=== PATIENT | female | born 1965 | race Caucasian/White ===

== ENCOUNTER 2019-11-08 09:10 | Observation (INO) ==
--- NOTE | 2019-10-25 14:34 | PAT Medication Instructions ---
Medication Instructions Date of Service October 25, 2019 Home Medications Medication Instructions Recorded norethindrone acetate [Aygestin] 5 mg PO BID 20 Days #40 tab 10/24/19 PNV cmb#95-ferrous fumarate-FA [] 1 tab PO QDL cholecalciferol (vitamin D3) [Vitamin D3] 125 mcg PO QAM ferrous sulfate [iron] 650 mg PO QAM norethindrone acetate [Aygestin] 5 mg PO BID ASK your surgeon for instructions norethindrone acetate [Aygestin] 5 mg PO BID DO NOT take the morning of surgery PNV cmb#95-ferrous fumarate-FA [] 1 tab PO QDL cholecalciferol (vitamin D3) [Vitamin D3] 125 mcg PO QAM ferrous sulfate [iron] 650 mg PO QAM Other Notes If you have any questions please call us at [phone] or [phone] or [phone] or [phone]
--- NOTE | 2019-10-28 10:44 | Anesthesiology Consultation ---
Date of Service October 28, 2019 Assessment & Plan (1) Encounter for pre-operative examination: Per PAT assessment on 10/27: Travel screen negative. No known COVID-19 positive contacts. No current COVID-19 related symptoms. Patient scheduled for preop protocol COVID-19 testing at [facility]. Awaiting results. - Check test AM DOS Chart Review Chart Review: Acceptable Risk for Surgery (pending COVID testing) and Patient seen in Pre Admission Testing Teaching & Discussion Pre-Anesthesia Teaching/Discussion Notes: Instructed NPO after midnight before surgery,except medications with 15 cc of water. Medication instructions provided according to the PAT guidelines. History Surgery Operation Date: 11/08/19 11:10 Proposed Procedures p Exam Under Anesthesia, Total Laparoscopic Hysterectomy, Bilateral Salpingectomy, Cystoscopy - Keon Freeman MD Height/Weight Height: 5 ft 7 in Weight: 91.1 kg Allergies Allergy/AdvReac Type Severity Reaction Status Date / Time codeine AdvReac Intermediate Nausea Unverified 10/25/19 09:19 Medications Home Medications Medication Instructions Recorded Confirmed Last Taken PNV cmb#95-ferrous fumarate-FA 1 tab PO QDL 10/24/19 10/25/19 10/23/19 [] cholecalciferol (vitamin D3) 125 mcg PO QAM 10/24/19 10/25/19 10/23/19 [Vitamin D3] ferrous sulfate [iron] 650 mg PO QAM 10/24/19 10/25/19 10/23/19 norethindrone acetate [Aygestin] 5 mg PO BID 20 Days #40 tab 10/24/19 10/25/19 Unknown Past Medical History Medical History (Updated 10/28/19 @ 11:12 by Ariella Gandhi) Abnormal uterine bleeding (AUB) (Acute) Anemia hx of iron infusions, no hx of blood tranfusions Exercise / Class Metabolic Activity II 4-5 Yardwork/Stairs/Walk up hill Past Family History Family History Other No family history of adverse response to anesthesia Past Surgical History Surgical History H/O wisdom tooth extraction History of dilatation and curettage with uterine ablation Past Anesthesia History No Hx of Anesthesia Complications (except PONV) and No Family Hx of Anesthesia Complications History of PONV No Hx of Motion Sickness and History of PONV (x2 episodes, no issues with more recent surgery when pre-treatment used) Social History Smoking Status: Never smoker Do You Dip or Chew Tobacco: No Hx Alcohol Use: Yes Alcohol type: hard liquor alcohol intake frequency: 0-2 drinks per day (1-2 drinks daily (vodka/seltzer)) Hx Substance Use: No substance use type: does not use Review of Systems Patient denies chest pain, shortness of breath, dyspnea on exertion, fever, chills, cough, wheezing, palpitations. Physical Exam Vital Signs VITALS BP 136/83 P 94 TEMP 98.5 SP02 96%RA RESP 16 PHYSICAL Full neck and c-spine range of motion. Full TMJ range of motion. TMD 3.5 finger breaths Mallampati Score 1 Dentition: missing molars, crowns on sides Lungs: clear throughout to auscultation Cardiac: regular rate and rhythm, no murmurs noted Spine: normal Carotid arteries: negative bruit Extremities: no edema Testing Laboratory Results Blood Type A Positive 10/28/19 11:40 Antibody Screen NEGATIVE 10/28/19 11:40 10/24/19 WBC 6.63 H/H 11.3/34.0 PLATELETS 201 SODIUM 142 POTASSIUM 4.1 CHLORIDE 108 CO2 26 BUN 11 CREATININE 0.69 GLUCOSE 86 PT 10.3 PTT 24.4 INR 1.0 UA negative Electrocardiogram Date: 10/24/19 Findings: + NSR @ (90)
[~2019-11-08 09:10] MED LIST: CLINDAMYCIN 600 MG/54 ML BAG IV SCH; DEXTROSE 5% IV SCH; GENTAMICIN SULFATE IV SCH; LACTATED RINGER'S 1,000 ML IV SCH; LR 15ML/HR IV SCH
[2019-11-08] MEDS ORDERED: fentaNYL citrate 100 MCG/2 ML VIAL ONE (09:38)
[2019-11-08] MEDS ORDERED: MIDAZOLAM HCL 1 MG/ML 2ML VIAL ONE (09:38)
[2019-11-08] MEDS ORDERED: ROCURONIUM BROMIDE 10 MG/ML 5 ML VIAL IV ONE ×2 (09:39→12:48)
[2019-11-08] MEDS ORDERED: ONDANSETRON INJ 2 MG/ML 2 ML VIAL ONE (09:39)
[2019-11-08] MEDS ORDERED: LIDOCAINE HCL 2% 2 ML VIAL/AMP(20MG/ML) INFIL ONE (09:39)
[2019-11-08] MEDS ORDERED: DEXAMETHASONE SOD INJ 4 MG/ML VIAL ONE (09:40)
[2019-11-08] MEDS ORDERED: PROPOFOL IV EMULSION 10 MG/ML 20 ML VIAL IV ONE (09:40)
[2019-11-08] MEDS ORDERED: SCOPOLAMINE 1.5 MG TDSY TD ONE ×2 (09:54→09:57)
[2019-11-08] MEDS ORDERED: ONDANSETRON INJ 2 MG/ML 2 ML VIAL IV PRN ×2 (09:58→14:13)
[2019-11-08] MEDS ORDERED: ATROPINE SULFATE 0.1 MG/ML 10ML SYR IV PRN (09:58)
[2019-11-08] MEDS ORDERED: fentaNYL citrate 100 MCG/2 ML VIAL IV PRN (09:58)
[2019-11-08] MEDS ORDERED: ePHEDrine sulfate 50 MG/ML AMP IV PRN (09:58)
--- NOTE | 2019-11-08 10:30 | History & Physical Bridge Note ---
Date of Service November 08, 2019 History & Physical Bridge Note I have examined the patient, reviewed the History & Physical and in the interval since the performance of the History & Physical I have noted the following changes of clinical significance: no changes noted Patient decided to have her ovaries removed. Understands the risks of surgical menopause, hot flashes , mood swings, futures risk of osteoporosis, CAD, Stroke We updated the consent with "bilateral salpingoophorectomy" and signed with todays date and time All questions were answered
[2019-11-08] MEDS ORDERED: MINERAL OIL LIGHT 10 ML BTL ONE (10:33)
[2019-11-08] MEDS ORDERED: BUPIVACAINE 0.5 % 5 MG/1 ML MPF 30ML VIAL ONE (10:33)
[2019-11-08] MEDS ORDERED: METHYLENE BLUE 0.5% 10 ML VIAL ONE (10:34)
[2019-11-08 10:35] LABS: Basophils # (auto) 0.03 K/uL (0-0.2); Basophils % (auto) 0.7 %; Eosinophils # (auto) 0.08 K/uL (0-0.5); Eosinophils % (auto) 1.8 %; Hematocrit (blood only) 31.9 % (37-47); Hemoglobin 9.9 g/dL (12.0-16.0); Lymphocytes # (auto) 1.26 K/uL (1.2-3.4); Lymphocytes % (auto) 27.6 %; Mean Corpuscular Hemoglobin 30.1 pg (25-34); Mean Platelet Volume 9.8 fL (7.4-10.4); Neutrophils # (auto) 2.69 K/uL (1.4-6.5); Neutrophils % (auto) 58.9 %; Platelet Count 215 K/uL (130-400); RDW Coefficient of Variation 15.8 % (11.5-14.5); RDW Standard Deviation 56.3 fL (36.4-46.3); Red Blood Count 3.29 M/uL (4.2-5.4); White Blood Count 4.56 K/uL (4.8-10.8)
[2019-11-08] MEDS ORDERED: HYDROmorphone INJ 2 MG/ML SYR/VIAL ONE (11:29)
[2019-11-08] MEDS ORDERED: SODIUM CHLORIDE 0.9% 250 ML IV PRN (11:50)
[2019-11-08] MEDS ORDERED: NEOSTIGMINE METHYLSULFATE 5 MG/5 ML SYR ONE (12:02)
[2019-11-08] MEDS ORDERED: GLYCOPYRROLATE 0.2 MG/ML VIAL ONE (12:02)
[2019-11-08] MEDS ORDERED: MEPERIDINE HCL 25 MG/ML CARP/VIAL IV PRN (14:13)
[2019-11-08] MEDS ORDERED: PROMETHAZINE HCL 12.5 MG in SODIUM CHLORIDE 0.9% 50 ML IV PRN (14:13)
[2019-11-08] MEDS ORDERED: MEPERIDINE HCL 50 MG/ML CARP IV PRN (14:13)
[2019-11-08] MEDS ORDERED: MAGNESIUM HYDROXIDE SUSP 30 ML UDC PO PRN (14:13)
[2019-11-08] MEDS ORDERED: ACETAMINOPHEN 325 MG TAB PO PRN (14:13)
[2019-11-08] MEDS ORDERED: IBUPROFEN 600 MG TAB PO PRN (14:13)
[2019-11-08] MEDS ORDERED: bisacodyL 10 MG SUPP PR PRN (14:13)
[2019-11-08] MEDS ORDERED: PROMETHAZINE HCL 25 MG in SODIUM CHLORIDE 0.9% 50 ML IV PRN (14:13)
[2019-11-08] MEDS ORDERED: KETOROLAC 30 MG/ML VIAL IV PRN (14:13)
[2019-11-08] MEDS ORDERED: OXYCODONE/ACETAMINOPHEN 5mg/325mg TAB PO PRN (14:13)
[2019-11-08] MEDS ORDERED: SIMETHICONE 80 MG CHEW PO PRN (14:13)
--- NOTE | 2019-11-08 14:13 | Post Operative Brief Note ---
Immediate Post Op Note v1 Date of Surgery November 08, 2019 Pre & Post Diagnosis Operation Date: 11/08/19 10:50 Pre-Op Diagnosis: Heavy Periods, Abdnormal Uterine Bleeding Post-Op Diagnosis: Heavy Periods, Abdnormal Uterine Bleeding I identified the patient and participated in the time-out.: Yes Procedure Operation Date: 11/08/19 10:50 Actual Procedures p Exam Under Anesthesia, Total Laparoscopic Hysterectomy, Lysis of adhesion, Bilateral Salpingo-oopherectomy, and Cystoscopy(Not Applicable) - Keon Trujillo MD Surgeon Keon Freeman MD Truck Driver Salesperson Dr Choudhary, Dr Borges Estimated Blood Loss 75 Findings Consistent with Post-Op Diagnosis Drains Schwartz Catheter Anesthesia Type General Complications none Disposition Accompanied Patient To Recovery: Yes Disposition: PCU
--- NOTE | 2019-11-08 14:56 | Anesthesiology Progress Note ---
Date of Service November 08, 2019 Anesthesia Post Procedure Vital Signs Vital Signs: Temp Pulse Pulse Resp BP BP Pulse Ox 11/08/19 14:45 90 15 159/85 H 100 11/08/19 14:35 87 12 163/84 H 100 11/08/19 14:27 98.4 F 91 H 11 L 163/97 H 100 11/08/19 10:01 99.5 F 81 18 141/86 H 98 Transfer of Care Handoff Completed per policy Notes Mental Status: alert / awake / arousable and participated in evaluation Patient Amnestic to Procedure: Yes Nausea / Vomiting: adequately controlled Pain: adequately controlled Airway Patency, RR, SpO2: stable & adequate BP & HR: stable & adequate Hydration State: stable & adequate Anesthetic Complications: no major complications apparent and Pt Satisfied with anesthetic care
[2019-11-08] MEDS: OXYCODONE/ACETAMINOPHEN 5mg/325mg TAB PO PRN ×2 (16:18→21:56)
[2019-11-08] MEDS: LACTATED RINGER'S 1,000 ML IV SCH (16:19)
[2019-11-08] MEDS: CHECK SCOPOLAMINE PATCH PLACEMENT SCH ×2 (16:19→23:58)
--- NOTE | 2019-11-08 17:33 | Operative Report (OR) ---
DATE OF OPERATION: 11/08/2019 PREOPERATIVE DIAGNOSES: The patient is a 54-year-old 1, para 1-0-0-1 female with history of heavy periods, abnormal prolonged uterine bleeding, fibroid uterus, history of endometrial ablation and desires definitive surgery, hysterectomy. POSTOPERATIVE DIAGNOSES: The patient is a 54-year-old 1, para 1-0-0-1 female with history of heavy periods, abnormal prolonged uterine bleeding, fibroid uterus, history of endometrial ablation and desires definitive surgery, hysterectomy. PROCEDURE: Exam under anesthesia, total laparoscopic hysterectomy, lysis of adhesion, bilateral salpingo-oophorectomy and cystoscopy. SURGEON: Keon Freeman MD. ASSISTANTS: Dr. Choudhary and Dr. Borges. ESTIMATED BLOOD LOSS: 75 mL. DRAINS: Schwartz catheter drained 450 mL of urine. ANESTHESIA: General endotracheal. COMPLICATIONS: None. FINDINGS: Exam under anesthesia revealed anteverted 14-week size uterus, nonpalpable adnexa. INTRAOPERATIVE FINDINGS: Uterus was enlarged about 14-week size with multiple fibroids. Normal fallopian tubes and ovaries. There was adhesion between the bladder serosa onto the anterior and left cornua of uterine wall, and there was adhesion between the bowel serosa and the left fallopian tube and ovary. DESCRIPTION OF PROCEDURE: The patient was taken to the operating room where general anesthesia was given without difficulty. She was then placed in dorsal lithotomy position, prepared and draped in usual sterile fashion. Bladder was drained with a Schwartz catheter. Exam under anesthesia was done with above findings and a speculum was placed in the patient's vagina. Cervix was visualized, grasped with a single tooth tenaculum and uterus was sounded to be 11 cm and then VCare manipulator was placed into the uterine cavity. Its balloon was inflated and the green cap was attached to the cervix with a suture and then it was placed over the cervix circumferentially and its blue cap was locked against the green cap to provide manipulation during surgery. Gloves were changed. Attention was turned to the patient's abdomen where a periumbilical skin incision was made about 12 mm and then the fat tissue was dissected off with Leeanne clamp. Fascia was grasped with Tenisha clamp and entered with the Veress needle and then normal saline test was done, injected the normal saline, which was moving freely and then suctioned back to clear fluid, and then CO2 gas was attached to the Veress needle. Pneumoperitoneum was obtained with CO2 gas and the abdomen was distended. Veress needle was removed and the 11 mm OptiScope was placed under direct visualization. Intra-abdominal entrance was confirmed with the scope. The patient was placed in dorsal Trendelenburg position. Uterus was brought to the midline, which was seen to be enlarged irregularly with multiple fibroids and there was adhesion of the serosa of the bladder on the anterior and left uterine wall, and then there were some adhesions between the bowel serosa and left adnexa. Then, 2 more trocars were placed on the left lower abdomen, one was 11 mm, the other one was 5 mm. One more trocar was placed on the right lower quadrant of abdomen, it was 5 mm and those were placed under direct visualization with the scope. The uterus was injected with diluted vasopressin to help to decrease blood loss during surgery and then the adhesion on the left cornua of the uterus between the parietal peritoneum and the bladder serosa was held and then incised gently with the LigaSure device. It was a thin adhesion, it did peel off easily. The left ovary and tube was also adhered to the left pelvic sidewall and the bowel serosa. To avoid those adhesions, the uterine cornua was incised with the left broad ligament and the uteroovarian ligament and then broad ligament and then bladder flap was made, and it was cut and incised with LigaSure device, and attention was turned to the right adnexa, which was normal. The fallopian tube was grasped with a grasper and the right infundibulopelvic ligament was identified, grasped with LigaSure device, coagulated 3 times and cut, then this was carried through the broad ligament and incised with the LigaSure device and bladder flap was connected from the left side to the right side and the bladder flap was pushed down over the lower uterus and cervix. Attention was turned to the uterine arteries. Those were coagulated multiple times and then cut on both sides. Excellent hemostasis was achieved. Then, cardinal ligaments were also coagulated and cut with LigaSure device. At that point, we were able to feel the edge of the cup from the vagina. Vagina mucosa was dissected off from filmy adhesions and then it was incised with the tip of LigaSure circumferentially. The whole uterus with the cervix and right ovary and fallopian tube were detached from the vagina, and attention was turned to the patient's vagina where the cervix was grasped. Uterus was brought to the vagina. It was very large to be delivered from vagina. It was incised with a scalpel to help to deliver and then removed completely and sent to the pathology, and then left ovary and the left fallopian tube were gently excised from the left adnexa, paying attention to not to touch bowels and those were removed from the vagina and sent to the pathology. Gloves were changed and attention was turned to the patient's abdomen again and the pelvis was irrigated with warm normal saline and suctioned. Excellent hemostasis was achieved. Then, the vaginal cuff was repaired with EndoStitch with absorbable suture starting from left corner towards the right corner in a continuous manner and then Lapra-Tys were placed for laparoscopic ties and it was hemostatic. The pelvis was irrigated with warm normal saline and suctioned and checked to be hemostatic again. Attention was turned to the patient's bladder. Cystoscopy was done and normal bladder mucosa was seen. Ureteral openings were seen and they were both ejecting urine, and cystoscopy was ended, bladder was emptied. Gloves were changed and Then the 11 mm incision on the left lower quadrant was repaired with laparoscopic sutures device under direct visualization with scope. Gas was emptied, the trocars were removed. The fascia at the periumbilical incision was repaired with 0 Vicryl with [id number] sutures. Skin incisions were closed with 4-0 Monocryl in a subcuticular fashion. The patient tolerated the procedure well. Sponge, lap, needle count was correct x3. The patient tolerated the procedure well. She was taken out from lithotomy position, cleaned, dried and brought to recovery room in stable condition. No complications happened. I and Dr. Choudhary and Dr. Borges were present during whole procedure as an assistant operations manager. She received 2 grams of cefazolin before surgery. My assistants were needed for uterine manipulation, retraction for tissue exposure and handling of laparoscope and laparoscopic instruments to ensure adequate visualization, gentle tissue manipulation and hemostasis. I attest to the content of the Intraoperative Record and any orders documented therein. Any exceptions are noted below. MAURICE
--- NOTE | 2019-11-08 18:37 | Obstetrical Progress Note ---
Date of Service November 08, 2019 Assessment & Plan Admission and Anticipated Discharge Date Admission Date: November 08, 2019 Subjective Postop check Patient is seen and examined Feels well, no complaints other than Migraine headache since surgery She normally drink coffee in the morning , might be caffeine withdrawal HARO as well No numbness/ tingling/ change in vision Incision or her abdomen does not bother her. No CP/ SOB/ Dizziness/ N&V/ VB/ Leg pain Not OOB yet Tolerating clears Explained about the surgery and findings Vital Signs Temp Pulse Pulse Resp BP BP Pulse Ox 11/08/19 17:55 37.1 C 93 H 16 139/81 97 11/08/19 16:58 36.6 C 88 16 161/85 H 97 11/08/19 16:31 36.7 C 83 16 152/81 H 97 11/08/19 15:05 75 14 147/85 H 95 11/08/19 14:55 36.8 C 87 15 163/92 H 97 11/08/19 14:45 90 15 159/85 H 100 11/08/19 14:35 87 12 163/84 H 100 11/08/19 14:27 36.9 C 91 H 11 L 163/97 H 100 11/08/19 10:01 37.5 C 81 18 141/86 H 98 PE: General: Alert, orientedx3, NAD Neurologic exam grossly normal CVS: S1S2 RRR Lungs: CTAB Abd: soft, NT, ND, BS+, Incisions/ Dressings C/D/I No VB Ext: NT, no edema, SCD's on AP: 54 yo female s/p EUA, TLH, BSO, SANTO, Cystoscopy , pod#0 VSS Afebrile doing well Migraine and caffeine withdrawal HARO, neurologic exam normal, await oral meds action, coffee as she desires Continue to routine postop care Encourage PO intake, may be OOB or ambulate D/C rosario in am Results & Data ([facility]) Vital Signs (Past 12 Hours) Vital Signs Temp Pulse Pulse Resp BP BP Pulse Ox 11/08/19 17:55 37.1 C 93 H 16 139/81 97 11/08/19 16:58 36.6 C 88 16 161/85 H 97 11/08/19 16:31 36.7 C 83 16 152/81 H 97 11/08/19 15:05 75 14 147/85 H 95 11/08/19 14:55 36.8 C 87 15 163/92 H 97 11/08/19 14:45 90 15 159/85 H 100 11/08/19 14:35 87 12 163/84 H 100 11/08/19 14:27 36.9 C 91 H 11 L 163/97 H 100 11/08/19 10:01 37.5 C 81 18 141/86 H 98
[2019-11-08 18:49] LABS: Hematocrit (blood only) 32.3 % (37-47); Hemoglobin 10.2 g/dL (12.0-16.0)
[2019-11-08] MEDS: DOCUSATE SODIUM 100 MG CAP PO SCH (20:41)
[2019-11-09] MEDS: LACTATED RINGER'S 1,000 ML IV SCH ×2 (00:23→08:34)
[2019-11-09 06:02] LABS: Basophils # (auto) 0.02 K/uL (0-0.2); Basophils % (auto) 0.2 %; Eosinophils # (auto) 0.02 K/uL (0-0.5); Eosinophils % (auto) 0.2 %; Hematocrit (blood only) 29.5 % (37-47); Hemoglobin 9.2 g/dL (12.0-16.0); Immature Granulocytes # (auto) 0.01 K/uL (0.00-0.02); Immature Granulocytes % (auto) 0.1 %; Lymphocytes # (auto) 1.52 K/uL (1.2-3.4); Lymphocytes % (auto) 17.7 %; Mean Corpuscular Hgb Conc 31.2 g/dL (32-36); Mean Corpuscular Volume 96.1 fL (80-100); Mean Platelet Volume 10.5 fL (7.4-10.4); Monocytes # (auto) 1.37 K/uL (0.11-0.59); Monocytes % (auto) 15.9 %; Neutrophils # (auto) 5.66 K/uL (1.4-6.5); Neutrophils % (auto) 65.9 %; Platelet Count 254 K/uL (130-400); RDW Coefficient of Variation 16.4 % (11.5-14.5); RDW Standard Deviation 57.3 fL (36.4-46.3); Red Blood Count 3.07 M/uL (4.2-5.4)
[2019-11-09 06:28] LABS: BUN Creatinine Ratio 9.5 (10-20); Creatinine Clr Calc Pharmacy 113.1 ml/min; Est GFR (African American) 116.6; Est GFR (Non-African American) 100.6; Potassium 3.6 mmol/L (3.5-5.1)
[2019-11-09 07:23] VITALS: BP 125/71; TEMP 99; O2SAT 98
[2019-11-09] MEDS: CHECK SCOPOLAMINE PATCH PLACEMENT SCH (08:34)
[2019-11-09] MEDS: DOCUSATE SODIUM 100 MG CAP PO SCH (08:34)
--- NOTE | 2019-11-09 09:52 | Obstetrical Progress Note ---
Date of Service November 09, 2019 Assessment & Plan Admission and Anticipated Discharge Date Admission Date: November 08, 2019 Subjective Patient is seen and examined. She feels well, no complaints. Much better than yesterday Pain is under control with oral meds. Ambulating without dizziness Has not Voided yet Tolerating regular diet with out N&V Flatus neg BM neg Bleeding is minimal No fever/ chills/ CP/ SOB/ N&V/ Leg pain Vital Signs Temp Pulse Pulse Resp BP Pulse Ox 11/09/19 07:22 37.2 C 68 18 125/71 98 11/09/19 03:30 36.7 C 63 14 118/69 96 11/09/19 00:12 37.0 C 76 14 126/73 97 11/09/19 11/09/19 11/08/19 Range/Units 05:45 05:45 18:39 WBC 8.60 (4.8-10.8) K/uL RBC 3.07 L (4.2-5.4) M/uL Hgb 9.2 L 10.2 L (12.0-16.0) g/dL Hct 29.5 L 32.3 L (37-47) % MCV 96.1 (80-100) fL MCH 30.0 (25-34) pg MCHC 31.2 L (32-36) g/dL RDW Std Deviation 57.3 H (36.4-46.3) fL RDW Coeff of Abigail 16.4 H (11.5-14.5) % Plt Count 254 (130-400) K/uL MPV 10.5 H (7.4-10.4) fL Immature Gran % (Auto) 0.1 % Neut % (Auto) 65.9 % Lymph % (Auto) 17.7 % [place] % (Auto) 15.9 % Eos % (Auto) 0.2 % Baso % (Auto) 0.2 % Neut # (Auto) 5.66 (1.4-6.5) K/uL Lymph # (Auto) 1.52 (1.2-3.4) K/uL [place] # (Auto) 1.37 H (0.11-0.59) K/uL Eos # (Auto) 0.02 (0-0.5) K/uL Baso # (Auto) 0.02 (0-0.2) K/uL Immature Gran # (Auto) 0.01 (0.00-0.02) K/uL Sodium 142 (136-145) mmol/L Potassium 3.6 (3.5-5.1) mmol/L Chloride 111 H (98-107) mmol/L Carbon Dioxide 26 (21-32) mmol/L Anion Gap 5.0 (3-11) BUN 6 L (7-18) mg/dl Creatinine 0.68 (0.6-1.2) mg/dl Est Cr Clr Drug Dosing 113.1 ml/min Est GFR ( Amer) 116.6 Est GFR (Non-Af Amer) 100.6 BUN/Creatinine Ratio 9.5 L (10-20) Glucose 113 H (70-99) mg/dl Calcium 8.0 L (8.5-10.1) mg/dl POC Ur Test (NEG) Blood Type Antibody Screen Crossmatch 11/08/19 11/08/19 11/08/19 Range/Units 10:24 10:24 09:54 WBC 4.56 L (4.8-10.8) K/uL RBC 3.29 L (4.2-5.4) M/uL Hgb 9.9 L (12.0-16.0) g/dL Hct 31.9 L (37-47) % MCV 97.0 (80-100) fL MCH 30.1 (25-34) pg MCHC 31.0 L (32-36) g/dL RDW Std Deviation 56.3 H (36.4-46.3) fL RDW Coeff of Abigail 15.8 H (11.5-14.5) % Plt Count 215 (130-400) K/uL MPV 9.8 (7.4-10.4) fL Immature Gran % (Auto) 0.0 % Neut % (Auto) 58.9 % Lymph % (Auto) 27.6 % [place] % (Auto) 11.0 % Eos % (Auto) 1.8 % Baso % (Auto) 0.7 % Neut # (Auto) 2.69 (1.4-6.5) K/uL Lymph # (Auto) 1.26 (1.2-3.4) K/uL [place] # (Auto) 0.50 (0.11-0.59) K/uL Eos # (Auto) 0.08 (0-0.5) K/uL Baso # (Auto) 0.03 (0-0.2) K/uL Immature Gran # (Auto) 0.00 (0.00-0.02) K/uL Sodium (136-145) mmol/L Potassium (3.5-5.1) mmol/L Chloride (98-107) mmol/L Carbon Dioxide (21-32) mmol/L Anion Gap (3-11) BUN (7-18) mg/dl Creatinine (0.6-1.2) mg/dl Est Cr Clr Drug Dosing ml/min Est GFR ( Amer) Est GFR (Non-Af Amer) BUN/Creatinine Ratio (10-20) Glucose (70-99) mg/dl Calcium (8.5-10.1) mg/dl POC Ur Test NEG (NEG) Blood Type Cancelled Antibody Screen Cancelled Crossmatch See Detail 11/08/19 Range/Units 09:38 WBC (4.8-10.8) K/uL RBC (4.2-5.4) M/uL Hgb (12.0-16.0) g/dL Hct (37-47) % MCV (80-100) fL MCH (25-34) pg MCHC (32-36) g/dL RDW Std Deviation (36.4-46.3) fL RDW Coeff of Abigail (11.5-14.5) % Plt Count (130-400) K/uL MPV (7.4-10.4) fL Immature Gran % (Auto) % Neut % (Auto) % Lymph % (Auto) % [place] % (Auto) % Eos % (Auto) % Baso % (Auto) % Neut # (Auto) (1.4-6.5) K/uL Lymph # (Auto) (1.2-3.4) K/uL [place] # (Auto) (0.11-0.59) K/uL Eos # (Auto) (0-0.5) K/uL Baso # (Auto) (0-0.2) K/uL Immature Gran # (Auto) (0.00-0.02) K/uL Sodium (136-145) mmol/L Potassium (3.5-5.1) mmol/L Chloride (98-107) mmol/L Carbon Dioxide (21-32) mmol/L Anion Gap (3-11) BUN (7-18) mg/dl Creatinine (0.6-1.2) mg/dl Est Cr Clr Drug Dosing ml/min Est GFR ( Amer) Est GFR (Non-Af Amer) BUN/Creatinine Ratio (10-20) Glucose (70-99) mg/dl Calcium (8.5-10.1) mg/dl POC Ur Test (NEG) Blood Type A Positive Antibody Screen NEGATIVE Crossmatch See Detail PE: General: Alert, orientedx3, NAD CVS: S1S2 RRR Lungs; CTAB Abd: soft, NT, ND, BS+ Incision/ Dressing: Clean, dry, intact Ext; NT, no edema AP: 54 yo s/p EUA, TLH, ANABEL, SANTO, Cysto, pod# 1 VSS Afebrile doing well Continue routine care Encourage ambulation, PO intake All questions were answered D/C home after void Results & Data ([facility]) Vital Signs (Past 12 Hours) Vital Signs Temp Pulse Pulse Resp BP Pulse Ox 11/09/19 07:22 37.2 C 68 18 125/71 98 11/09/19 03:30 36.7 C 63 14 118/69 96 11/09/19 00:12 37.0 C 76 14 126/73 97
[2019-11-09 10:58] VITALS: PULSE 63
--- NOTE | 2019-11-15 11:18 | Discharge Summary (DS) ---
DETAILS OF ADMISSION: The patient is a 54-year-old G1, P1-0-0-1 female with history of heavy prolonged periods, fibroid uterus, endometrial ablation and desires definitive surgery, which was a hysterectomy. She was scheduled for exam under anesthesia, laparoscopic total hysterectomy, bilateral salpingo-oophorectomy and cystoscopy on 11/08/2019. Her surgery was uncomplicated, see dictated op note for details. On postop period, the patient's vital signs were stable, afebrile. Urine output was adequate. She had an episode of migraine headaches which was relieved by pain medications and caffeine intake. Her neurologic and physical exam was normal. Incisions were clean, dry and intact. She was tolerating clears and she did well overnight and in the morning of 11/09/2019, patient was feeling much better, eating regular diet, ambulating without dizziness, voiding without difficulty. Vital signs were stable, afebrile. Her H and H was 10.2/32.3 and she was discharged on 11/09/2019. Discharge instructions were given when to call. Prescriptions were written for pain. She is to be seen in the office in a week. All questions were answered.
== END 2019-11-09 12:07 | disposition home or self-care (01) ==
LOC: ASU 09:10 → 4N 14:13 → INTOOBSV 14:13 → 3W 15:55

== ENCOUNTER 2023-07-28 08:33 | Observation (INO) ==
--- NOTE | 2023-07-17 15:08 | PAT Medication Instructions ---
Medication Instructions Date of Service July 17, 2023 Home Medications Medication Instructions Recorded oxycodone 5 mg tablet 5 mg PO Q6 PRN pain #12 tabs 03/30/23 Medication List: cholecalciferol (vitamin D3) 125 mcg (5,000 unit) tablet (Vitamin D3) 125 mcg PO QAM calcium carbonate 600 mg-vitamin D3 10 mcg (400 unit) tablet (Calcium with Vitamin D) 2 tab PO BID lisinopril 10 mg tablet 10 mg PO QAM oxycodone 5 mg tablet 5 mg PO Q6 PRN pain rosuvastatin 20 mg tablet 20 mg PO QAM anastrozole 1 mg tablet (Arimidex) 1 mg PO QAM ribociclib 600 mg/day (200 mg x 3) tablets (Kisqali) 600 mg PO DIRECTED MEDICATION INSTRUCTIONS: Continue as directed ribociclib 600 mg/day (200 mg x 3) tablets (Kisqali) 600 mg PO DIRECTED anastrozole 1 mg tablet (Arimidex) 1 mg PO QAM DO NOT take the morning of surgery lisinopril 10 mg tablet 10 mg PO QAM cholecalciferol (vitamin D3) 125 mcg (5,000 unit) tablet (Vitamin D3) 125 mcg PO QAM calcium carbonate 600 mg-vitamin D3 10 mcg (400 unit) tablet (Calcium with Vitamin D) 2 tab PO BID Take morning of surgery With a small sip of water, OTHERWISE NOTHING TO EAT OR DRINK AFTER MIDNIGHT: rosuvastatin 20 mg tablet 20 mg PO QAM oxycodone 5 mg tablet 5 mg PO Q6 PRN pain (if needed) Take evening before surgery oxycodone 5 mg tablet 5 mg PO Q6 PRN pain (if needed) calcium carbonate 600 mg-vitamin D3 10 mcg (400 unit) tablet (Calcium with Vitamin D) 2 tab PO BID Other Notes If you have any questions please call us at [phone] or [phone] or [phone] or [phone]
--- NOTE | 2023-07-20 13:05 | Anesthesiology Consultation ---
Date of Service July 20, 2023 Assessment & Plan (1) Encounter for pre-operative examination: - Infectious disease screening: Per assessment on 07/20/23: No known infectious disease contacts or current infectious disease symptoms. No noted recent Covid positive test result. - Orthopedics visit (07/05/23): "Joelle is a pleasant 58-year-old female who is dealing with a stage 4 metastatic breast cancer. She is currently on an oral chemotherapy agent, which may extend her life expectancy to 5 years. She has been dealing with right hip and groin pain. There are times where it bothers her a lot more than others. It is a constant ache in her groin, but there are times where her pain is rather severe. The most recent PET scan did show metastatic lesion to her right femoral neck. She presents to the office today for evaluation.. PET scan reviewed in the office today does light up directly over the femoral neck. X-rays were obtained in the office today, 3 views of the right hip and pelvis show no evidence of arthritis. There is a lesion in the femoral neck of the right hip." - LUE limb restriction - Check CBCD DOS (current oral chemo) Chart Review Chart Review: Acceptable Risk for Surgery and Patient seen in Pre Admission Testing Teaching & Discussion Pre-Anesthesia Teaching/Discussion Notes: Instructed NPO after midnight before surgery,except medications with 15 cc of water. Medication instructions provided according to the PAT guidelines. History Surgery Operation Date: 07/28/23 12:00 Proposed Procedures p Cemented Right Hip Hemiarthroplasty - Job Paulino, Height/Weight Height: 5 ft 6.5 in Weight: 100.9 kg Allergies Allergy/AdvReac Type Severity Reaction Status Date / Time Gadolinium-Containing Allergy Intermediate Nausea, Verified 07/19/23 11:03 Contrast Medi congestion, skin redness codeine AdvReac Intermediate Nausea Verified 07/07/23 16:32 Medications Home Medications Medication Instructions Recorded Confirmed Last Taken cholecalciferol (vitamin D3) 125 125 mcg PO QAM 10/24/19 07/07/23 04/30/23 mcg (5,000 unit) tablet (Vitamin D3) calcium carbonate 600 mg-vitamin 2 tab PO BID 04/15/20 07/07/23 04/30/23 08:00 D3 10 mcg (400 unit) tablet (Calcium with Vitamin D) lisinopril 10 mg tablet 10 mg PO QAM 03/30/23 07/07/23 04/30/23 oxycodone 5 mg tablet 5 mg PO Q6 PRN pain #12 tabs 03/30/23 07/07/23 Unknown rosuvastatin 20 mg tablet 20 mg PO QAM 03/30/23 07/07/23 04/30/23 anastrozole 1 mg tablet (Arimidex) 1 mg PO QAM 04/24/23 07/07/23 04/30/23 ribociclib 600 mg/day (200 mg x 3) 600 mg PO DIRECTED 04/30/23 07/07/23 04/30/23 14:00 tablets (Kisqali) Past Medical History Medical History Anemia Hx iron infusions, no hx of blood transfusions Breast cancer, left breast 01/2020- S/P surgery/oral chemo DVT (deep venous thrombosis) , felt possibly r/t control, no issues since History of COVID-19 Dx 02/2022- mild symptoms, resolved Malignant neoplasm of breast metastatic to bone Dx 03/2023- radiation completed 04/2023, current oral chemo Obesity Exercise / Class Metabolic Activity II 4-5 Yardwork/Stairs/Walk up hill Past Family History Family History Mother Non-Hodgkins lymphoma Hypertension Father Prostate cancer Lung cancer Benign brain tumor Stroke Diabetes Hypertension Brother Throat cancer Brother No problems noted. Son No problems noted. Other No family history of adverse response to anesthesia Past Surgical History Surgical History H/O wisdom tooth extraction History of colonoscopy History of cryosurgery Cervix History of dilatation and curettage with uterine ablation History of hysterectomy with BSO History of hysteroscopy S/P endometrial ablation S/P left mastectomy + SLN biopsy (2019) Pt states limb restriction Past Anesthesia History No Hx of Anesthesia Complications and No Family Hx of Anesthesia Complications History of PONV No Hx of PONV and No Hx of Motion Sickness Social History Smoking Status: Never smoker Do You Dip or Chew Tobacco: No Hx Alcohol Use: Yes Alcohol type: hard liquor alcohol intake frequency: a few times a week Hx Substance Use: No substance use type: does not use Review of Systems Patient denies chest pain, shortness of breath, dyspnea on exertion, fever, chills, cough, wheezing, palpitations. Physical Exam Vital Signs BP 160/84 P 78 TEMP 98.4 SP02 98%RA RESP 18 Physical Full cervical extension range of motion. Full TMJ range of motion. TMD 3.5 finger breaths Mallampati Score 2 Dentition: intact, + crowns (sides) Lungs: clear throughout to auscultation Cardiac: regular rate and rhythm, no murmurs noted Spine: normal Carotid arteries: negative bruit Extremities: no LE edema Lab Results Anesthesia Preop Results Results Anesthesia Widget: WBC 2.07 K/ul (4.8-10.8) L 07/12/23 Hgb 11.6 g/dl (12.0-16.0) L 07/12/23 Hct 34.8 % (37.0-47.0) L 07/12/23 Plt 121 K/uL (130-400) L 07/12/23 Na 139 mmol/L (136-145) 07/12/23 K 3.9 mmol/L (3.5-5.1) 07/12/23 Cl 105 mmol/L (98-107) 07/12/23 CO2 27 mmol/L (21-32) 07/12/23 BUN 22 mg/dl (6-23) 07/12/23 Creat 0.71 mg/dl (0.6-1.2) 07/12/23 Glucose Level 98 mg/dl (70-99(Fasting)) 07/12/23 PT 11.1 Seconds (9.0-12.0) 07/20/23 PTT 28 Seconds (21-31) 07/20/23 INR 1.0 (0.9-1.1) 07/20/23 Blood Type A Positive 07/20/23 Antibody Screen NEGATIVE 07/20/23 Testing Electrocardiogram Date: 04/30/23 Findings: + NSR @ (76) Other Testing Ribs with chest x-ray Date: 05/15/23 1. Small left pleural effusion with left basilar consolidation. Correlate clinically for evidence of pneumonia/aspiration pneumonitis. Radiographic follow-up to resolution is recommended. 2. There is no radiographic evidence of acute/displaced right-sided rib fracture on the rib series. 3. Suspect a subacute/healing right anterior 6th rib fracture. Correlate for point tenderness. *Resolution in previous rib pain. No point tenderness per PAT evaluation 07/20/23* PET Skull-mid thigh Date: 07/13/23 There is no airspace consolidation or pleural effusion. Thorax: Evaluation of the thorax demonstrates expected physiologic myocardial activity. Again seen is a 2.8 cm irregular opacity in the superior left breast seen on image #99. This shows low level FDG uptake with a maximum SUV of 2.0. There is a 12 mm right internal mammary lymph node on image #97 which shows low level FDG uptake with a maximum SUV of 2.6. Mediastinal and hilar lymphadenopathy as well as pleural- based metastatic disease seen previously have almost completely resolved. There is a 1.9 cm residual pulmonary opacity in the anterior right middle lobe on image 118. This is no longer demonstrably FDG avid. Overall significant positive response to treatment. Again seen is evidence of multifocal bony metastatic disease. Pathologic tracer uptake throughout the skeletal structures has significantly decreased from previous. Several lesions do show persistent uptake. A right internal mammary lymph node has decreased in size and FDG uptake as compared to previous. This shows residual low level FDG activity. Mediastinal and hilar lymphadenopathy have almost completely resolved, as has metastatic pulmonary and pleural disease. There is a similar-appearing 2.8 cm irregular opacity in the superior aspect of the left breast which shows low level left degenerative uptake. This may represent the site of the primary breast cancer versus postsurgical change. Correlate clinically. Again seen is a markedly FDG avid left lobe thyroid nodule. This remains suspicious for a thyroid neoplasm. Correlation with thyroid ultrasound is recommended for further assessment.
[~2023-07-28 08:33] MED LIST changes: +BUPIVACAINE 0.5 % 5 MG/1 ML PF 10ML VIAL ONE; -CLINDAMYCIN 600 MG/54 ML BAG IV SCH; -DEXTROSE 5% IV SCH; -GENTAMICIN SULFATE IV SCH; -LACTATED RINGER'S 1,000 ML IV SCH; -LR 15ML/HR IV SCH
[2023-07-28] MEDS ORDERED: MIDAZOLAM HCL 1 MG/ML 2ML VIAL ONE ×3 (08:34→12:11)
--- NOTE | 2023-07-28 09:04 | History & Physical Bridge Note ---
Date of Service July 28, 2023 History & Physical Bridge Note I have examined the patient, reviewed the History & Physical and in the interval since the performance of the History & Physical I have noted the following changes of clinical significance: no changes noted
[2023-07-28 09:11] LABS: Basophils # (auto) 0.05 K/uL (0.00-0.20); Basophils % (auto) 2.5 %; Eosinophils # (auto) 0.06 K/uL (0.00-0.50); Hematocrit (blood only) 35.8 % (37.0-47.0); Hemoglobin 11.9 g/dl (12.0-16.0); Lymphocytes # (auto) 0.27 K/uL (1.20-3.40); Lymphocytes % (auto) 13.7 %; Mean Corpuscular Hemoglobin 33.5 pg (25.0-34.0); Mean Corpuscular Hgb Conc 33.2 g/dL (32.0-36.0); Mean Corpuscular Volume 100.8 fL (80.0-100.0); Mean Platelet Volume 9.4 fL (9.4-12.4); Monocytes # (auto) 0.26 K/uL (0.11-0.59); Monocytes % (auto) 13.2 %; Neutrophils # (auto) 1.33 K/uL (1.40-6.50); Neutrophils % (auto) 67.6 %; Platelet Count 196 K/uL (130-400); RDW Coefficient of Variation 16.1 % (11.5-14.5); RDW Standard Deviation 59.7 fL (36.4-46.3); Red Blood Count 3.55 M/uL (4.20-5.40); White Blood Count 1.97 K/ul (4.8-10.8)
[2023-07-28] MEDS: LR 60ML/HR IV SCH (09:15)
[2023-07-28] MEDS: LR 500ML BOLUS, THEN 15ML/HR IV SCH (09:15)
[2023-07-28] MEDS: ACETAMINOPHEN 500 MG TAB PO SCH ×2 (09:23→15:25)
[2023-07-28] MEDS: GABAPENTIN 600 MG DOSE PO SCH (09:23)
[2023-07-28] MEDS: FAMOTIDINE 20 MG TAB PO SCH (09:23)
[2023-07-28] MEDS: dexAMETHasone**PF** 10 MG/ML VIAL IV SCH (09:24)
[2023-07-28] MEDS ORDERED: fentaNYL citrate PF 100 MCG/2 ML VIAL ONE (10:18)
[2023-07-28] MEDS ORDERED: ePHEDrine sulfate 50 MG/ML AMP IV PRN (10:21)
[2023-07-28] MEDS ORDERED: ATROPINE SULFATE 0.1 MG/ML 10ML SYR IV PRN (10:21)
[2023-07-28] MEDS ORDERED: ONDANSETRON INJ 2 MG/ML 2 ML VIAL IV PRN ×2 (10:21→14:19)
[2023-07-28] MEDS ORDERED: fentaNYL citrate PF 100 MCG/2 ML VIAL IV PRN (10:21)
[2023-07-28] MEDS: TRANEXAMIC ACID 1,000 MG **IV Pre-op IV SCH (11:00)
[2023-07-28] MEDS: ceFAZolin 2000MG 2,000 MG/15 ML SYR IV SCH ×2 (11:16→18:14)
[2023-07-28] MEDS ORDERED: GLYCOPYRROLATE 0.2 MG/ML VIAL ONE (11:40)
[2023-07-28] MEDS ORDERED: PROPOFOL IV EMULSION 10 MG/ML 20 ML VIAL IV ONE ×2 (11:40→12:24)
[2023-07-28] MEDS ORDERED: ONDANSETRON INJ 2 MG/ML 2 ML VIAL ONE (11:40)
[2023-07-28] MEDS: ROPIV 0.5% 246mg, Ketorolac 30mg, EPINEPHrine 0.5mg in NSS INFIL SCH (11:54)
[2023-07-28] MEDS: ORTHO JOINT ANESTHETIC ONE (11:54)
[2023-07-28] MEDS: TRANEXAMIC ACID 1,000 MG **IV Intra-op IV SCH (12:21)
--- NOTE | 2023-07-28 12:53 | Fluoroscopy Report ---
FL hip RT 1V CLINICAL HISTORY: CEMENTED RIGHT HIP HEMIARTHROPLASTY COMPARISON STUDY: None. FLUOROSCOPY TIME: 7 seconds FLUOROSCOPY IMAGES: 1 Ka,r: 1.0 mGy FINDINGS: There is a right hip hemiarthroplasty. The hardware is intact. No fracture or dislocation. IMPRESSION: Fluoroscopic assistance as above. ACT 112: Negative or not required by law. Electronically signed by: Brayden Duarte M.D. 07/28/2023 12:51 PM
--- NOTE | 2023-07-28 13:10 | XRay Report ---
XR hip 1V RT w pelvis CLINICAL HISTORY: IN PACU - Post Surgical TECHNIQUE: 1 view of the right hip and single frontal view of the pelvis were obtained. Comparison: Comparison is made to hip radiographs 07/05/2023 FINDINGS: Patient is status post total hip arthroplasty with expected postsurgical changes including soft tissu e swelling and subcutaneous emphysema. IMPRESSION: Expected postoperative appearance status post placement of total hip arthroplasty. ACT 112: Negative or not required by law. Electronically signed by: Kory Barone M.D. 07/28/2023 1:08 PM
--- NOTE | 2023-07-28 13:38 | Anesthesiology Progress Note ---
Date of Service July 28, 2023 Anesthesia Post Procedure Vital Signs Vital Signs: Temp Pulse Pulse Resp BP Pulse Ox O2 Del Method 07/28/23 13:35 97.7 F 90 14 121/77 96 Room Air 07/28/23 13:25 89 14 142/87 H 99 Nasal Cannula 07/28/23 13:15 85 15 143/88 H 100 Nasal Cannula 07/28/23 13:05 86 14 144/89 H 100 Nasal Cannula 07/28/23 12:55 88 14 134/87 97 Nasal Cannula 07/28/23 12:47 98.6 F 91 H 14 115/72 94 Nasal Cannula 07/28/23 08:57 98.4 F 96 H 20 150/91 H 96 Room Air O2 Flow Rate 07/28/23 13:35 07/28/23 13:25 3 07/28/23 13:15 3 07/28/23 13:05 3 07/28/23 12:55 3 07/28/23 12:47 3 07/28/23 08:57 Transfer of Care Handoff Completed per policy Notes Mental Status: alert / awake / arousable and participated in evaluation Patient Amnestic to Procedure: Yes Nausea / Vomiting: adequately controlled Pain: adequately controlled Airway Patency, RR, SpO2: stable & adequate BP & HR: stable & adequate Hydration State: stable & adequate Neuraxial Anesthesia: was administered and sensory block is resolving Anesthetic Complications: no major complications apparent and Pt Satisfied with anesthetic care
[2023-07-28] MEDS ORDERED: bisacodyL 10 MG SUPP PR PRN (14:19)
[2023-07-28] MEDS ORDERED: NALOXONE HCL 0.4 MG/1 ML VIAL/CARP IV PRN (14:19)
[2023-07-28] MEDS ORDERED: MAGNESIUM HYDROXIDE SUSP 30 ML UDC PO PRN (14:19)
[2023-07-28] MEDS ORDERED: HYDROmorphone INJ 0.5 MG/0.5 ML SYR IV PRN (14:19)
[2023-07-28] MEDS ORDERED: METOCLOPRAMIDE HCL INJ 5 MG/ML 2 ML VIAL IV PRN (14:19)
--- NOTE | 2023-07-28 14:33 | Operative Report ---
PG Post Operative Report Pre & Post Diagnosis Operation Date: 07/28/23 11:00 Pre-Op Diagnosis: Metastatic Hip Pain Post-Op Diagnosis: Metastatic Hip Pain I identified the patient and participated in the time-out.: Yes Procedure Operation Date: 07/28/23 11:00 Actual Procedures p Anterior Cemented Right Hip Hemiarthroplasty(Right) - Job Paulino DO Surgeon Job Paulino DO Head Baggage Porter Job Wallace PA-C Estimated Blood Loss 200 Findings Consistent with Post-Op Diagnosis Specimens Right femoral head Description of Procedure On July 28, 2023 Joelle arrived at [facility] for the above procedure. She was seen in the preoperative holding area and the operative extremity identified and signed. She was given a preoperative antibiotic and a spinal anesthetic. She was taken back the operative room and laid on the table in supine position. She was put under basic sedation. The right hip was brought out to a purist leg positioner. The right hip was then prepped and draped in sterile fashion. A timeout was done. The patient and the operative extremity was properly identified. An anterior portal was used. Dissection was taken down through the fascia. The rectus was retracted anteriorly and the tensor fascia muscle belly was retracted posteriorly. The circumflex vessels were ligated. The capsule was then exposed. The capsule was then incised and tagged for later repair. The femoral neck was then resected and the head was removed. The acetabulum was then exposed. Time was spent cleaning up any remnants of labrum or ligamentum. The femoral head measured to be a size 47. The proximal femur was then exposed. Sequential broaching up to a size 11 broach was done. A standard femoral neck and a 47 mm head was trialed. The hip was then reduced. Fluoroscopic images showed near anatomic alignment. The hip was then dislocated. The trials were removed. The final size 11 Marguerite LD fracture smooth stem was then cemented in place with Biomet cement. Once cement hardened a 28 mm femoral head was snapped into a 47 mm shell. The head and shell assembly was then impacted onto the femoral neck. The hip was then reduced. Final fluoroscopic images showed anatomic alignment. The wound was then irrigated. The capsule was then closed with #1 Vicryl suture. A 3-minute Betadine lavage was done. The fascia was closed with #1 PDS suture. The deep fat layer was closed with 2-0 Vicryl. Skin was closed with 3-0 Vicryl and rivas. She was then placed in a Silverlon dressing. She was then transferred to a hospital bed and taken to the postanesthesia care unit in stable condition. She tolerated the procedure well. Job Wallace PA-C, was present for the entire procedure. He was critical for patient positioning, prepping, draping, retraction exposure, wound closure and application of sterile dressing. I attest to the content of the Intraoperative Record and any orders documented therein. Any exceptions are noted below.
[2023-07-28] MEDS: SODIUM CHLORIDE 0.9% 1,000 ML IV SCH (15:20)
[2023-07-28] MEDS: KETOROLAC 30 MG/ML VIAL IV SCH (15:24)
[2023-07-28] MEDS: SENNA 8.6 MG TAB PO SCH (20:40)
[2023-07-28] MEDS: ASPIRIN 81 MG ECTAB PO SCH (20:40)
[2023-07-28] MEDS: DOCUSATE SODIUM 100 MG CAP PO SCH (20:40)
[2023-07-29 04:16] VITALS: O2SAT 97
[2023-07-29] MEDS: oxyCODONE HCL IR 5 MG TAB (IMMEDIATE RELEASE) PO PRN (05:39)
[2023-07-29 07:16] VITALS: BP 148/85; PULSE 78; RESP 16; TEMP 98.1
[2023-07-29] MEDS: dexAMETHasone 4 MG TAB PO SCH (08:27)
[2023-07-29] MEDS: lisinopril 10 MG TAB PO SCH (08:28)
[2023-07-29] MEDS: CHOLECALCIFEROL 125 MCG (5,000 UNITS) TAB PO SCH (08:28)
[2023-07-29] MEDS: CALCIUM 600MG + VIT D 400 IU TAB PO SCH (08:28)
[2023-07-29] MEDS: ROSUVASTATIN CALCIUM 10 MG TAB PO SCH (08:29)
[2023-07-29] MEDS: MULTIVITAMIN TAB PO SCH (08:29)
[2023-07-29] MEDS: ANASTROZOLE 1 MG TAB PO SCH (09:34)
--- NOTE | 2023-07-29 11:33 | Orthopedic Progress Note ---
Date of Service July 29, 2023 Assessment & Plan (1) Status post hip hemiarthroplasty: Overall she is doing very well. She is not having much pain in the right hip. She will be seen by physical therapy today for ambulation and range of motion exercises. She is on aspirin for DVT prophylaxis. She can be discharged home later today. She will follow-up orthopedics in 2 weeks. Maria Isabel Lai was seen and examined at bedside this morning. Overall she is doing very well. She is not having much pain in the right hip. She has been up and ambulating. She has no complaints.. Review of Systems All systems reviewed & are unremarkable except as noted in HPI & below. Physical Exam On physical examination the right hip, the dressing is clean and dry. Her leg is out full extension. She has active dorsiflexion plantarflexion of her right ankle.. Results & Data Results & Data Laboratory Results . Diagnostic Findings Postoperative x-rays of the right hip show the prosthesis to be in anatomic alignment without any evidence of fracture, cage, or loosening.. PG Care Time/CCT Total # of Minutes Spent Total Time Spent with Patient: Total time spent is greater than 50% in coordination of care (as documented) at patient's floor/unit and/or counseling patient: Coding Level of Care Code 57971 Post Operative Follow-Up Diagnoses Status post hip hemiarthroplasty Z96.649
--- NOTE | 2023-07-29 11:34 | Discharge Summary ---
Date of Service July 29, 2023 Principal Diagnosis Same as "Discharge Diagnosis" noted below under Discharge Instructions. Discharge Exam On physical examination the right hip, the dressing is clean and dry. Her leg is out full extension. She has active dorsiflexion plantarflexion of her right ankle.. Discharge Data Procedures Performed Operation Date: 07/28/23 11:00 Actual Procedures p Anterior Cemented Right Hip Hemiarthroplasty(Right) - Job Paulino DO Ordered Studies 07/28/23 11:00 FL hip RT 1V Routine Hospital Course (1) Status post hip hemiarthroplasty: On July 28, 2023 Joelle arrived at [facility] and underwent a right hip hemiarthroplasty without complication. She had a spinal anesthetic. Postoperatively she was started on aspirin for DVT prophylaxis and transferred to the general orthopedic floors. Her hospital course was uneventful. On postop day #1, her vital signs were stable and her pain was well-controlled. She was able to participate well with physical therapy doing ambulation and range of motion exercises. She was then discharged home. She will follow-up orthopedics in 2 weeks. PG Care Time/CCT Total # of Minutes Spent Total Time Spent with Patient: Total time spent is greater than 50% in coordination of care (as documented) at patient's floor/unit and/or counseling patient: Discharge Plan Discharge Items Patient Disposition: Home - Self-Care Reason For Visit: Metastatic Hip Pain Discharge Diagnosis: Right partial hip replacement Activity: Per Instructions section Non-emergency contact: Surgeon Call non-emergency contact if: your wound has increased redness and your wound has increased drainage Follow-up/Referrals: Tata Chin DO [Primary Care Provider] - Diet: Regular Addtl Attending Provider Instructions: Activity and Therapy Recommendations: * If you are using [facility] then therapy will be provided at your home until they feel you have accomplished all of your goals. * If you are using [facility] then Physical Therapy will be provided until they feel you are ready to start Outpatient Physical Therapy. * If you are not using home therapy then Outpatient Physical Therapy should start about 3-5 days from your day of surgery. Therapy will last about 6-10 weeks * You were shown a series of exercises in the hospital. Do these exercises three times each day including the exercises you were shown in physical therapy. * Get up and walk several times each day.~ For the first four weeks, try not to stand or walk for more than one hour at a time. If you do stand or walk for more than one hour, you will not hurt anything, but your leg will likely swell.~~ * As you feel comfortable, you may change from the walker or crutches to a cane and~then to independent walking. Medications: * Narcotic You will likely be sent home from the hospital with a prescription for the narcotic pain medication that worked best throughout your stay. * Cefadroxil -take the antibiotic twice a day for 10 days to help prevent infection. * Aspirin Most patients will be required to take Aspirin 81mg twice a day for 6 weeks after surgery. This is obtained [id number] and a prescription is not necessary. * Other medications may be prescribed for specific circumstances. If you have any questions, please call the office at . * Resume previous home medications unless otherwise instructed TEDs/Elastic Stockings: The white elastic stockings help limit swelling and prevent blood clots from forming in your legs. The more you wear them, the more they work. Wear them for six weeks. Dressing Care: Leave the Silverlon dressing in place for 7 days. After 7 days you may remove the dressing. If the incision is not draining then you may leave the rivas open to air. If there is a little bit of drainage or if the rivas are getting stuck on your clothing then cover the incision with a dry dressing. The rivas will be removed at your 2 week follow-up appointment. Showering: You may shower with the Silverlon dressing in place. Do not let the shower spray hit the dressing directly. Pat the Silverlon dressing dry. If the dressing becomes wet underneath, then simply remove the dressing. Keep the incision dry until you are 7 days out from the day of surgery. After 7 days you may remove the Silverlon dressing and shower with the rivas exposed. Let soapy water run over the rivas and pat them dry. Do not scrub or soak the incision. Things To Watch For: * Drainage from the incision site that occurs more than one week after your surgery. * Increased redness at the incision site. * Fever above 102 degrees Fahrenheit. * Unusual chest pain or shortness of breath. * Call [facility] at with any of the above problems Follow-Up Visit: Follow-up with Dr. Paulino's PA (Job Wallace) 2-3 weeks after your day of surgery. He will remove your rivas and answer any questions. If you have any additional questions or concerns, Dr Paulino is usually in the office at the same time and will be available An appointment was probably scheduled when you signed-up for surgery in the office. If you have any questions call Office Instructions: More detailed instructions as well as Frequently Asked Questions were provided in a folder by our office when you signed-up for surgery. Please review these instructions when you get home. If you have any further questions or concerns, please feel free to call the office at [phone] Pending Studies at Discharge: No Stand-Alone Forms: My [facility], Pain - Opioid Pain Management, Smok ing Cessation Medications and DC Order Prescriptions: New aspirin 81 mg Tablet,Delayed Release (Dr/Ec) 81 mg PO BID 42 Days Qty: 84 0RF cefadroxil 500 mg capsule 500 mg PO BID 10 Days Qty: 20 0RF Continued calcium carbonate-vitamin D3 [Calcium with Vitamin D] 600 mg(1,500mg) -400 unit tablet 2 tab PO BID anastrozole [Arimidex] 1 mg tablet 1 mg PO QAM cholecalciferol (vitamin D3) [Vitamin D3] 125 mcg (5,000 unit) Tablet 125 mcg PO QAM lisinopril 10 mg tablet 10 mg PO QAM rosuvastatin 20 mg tablet 10 mg PO QAM Kisqali 600 mg/day (200 mg x 3) Tablet 600 mg PO DIRECTED Rx Instructions: TAKES 1 TAB TID--0800, 1400, & HS--administer for 21 days; off 7 days per 28- day cycle oxycodone 5 mg tablet 5 mg PO Q6 PRN (Reason: pain) Qty: 30 0RF Discharge Orders: Discharge Order (Routine); Ordered 07/29/23 Ordered By: Job Cadena/Other Patient Handouts: DVT Post Op Prevention Admission Data Admit Date/Time: 07/28/23 12:48 Attending Provider: Job Paulino Admit Provider: Job Paulino Primary Care Provider: Tata Chin Other Interventions: Discharge Summary Assessment (RN) Last Done: 07/29/23 10:23
== END 2023-07-29 10:45 | disposition home or self-care (01) ==
LOC: 3E 08:33 → ASU 08:33